=== PATIENT | male | born 1955 | race African-American/Black ===

== ENCOUNTER 2017-08-07 19:47 | Emergency (ER) | payer OTHER ==
[~2017-08-07] VITALS: Ht 182.9 cm; Wt 71.7 kg
[2017-08-07 19:50] VITALS: TEMP 36.8; Ht 182.9 cm; Wt 71.7 kg
[2017-08-07] MEDS ORDERED: LIDOCAINE/EPINEPHRINE 1% 20 ML VIAL INFIL ONE (20:15)
[2017-08-07] MEDS ORDERED: CEPHALEXIN MONOHYDRATE 250 MG CAP PO ONE (20:30)
[2017-08-07] MEDS ORDERED: CEPHALEXIN 500MG HOME PACK 1 EA BTL PO ONE (20:30)
[2017-08-07] MEDS ORDERED: ATOR-22 PO (20:53)
[2017-08-07] MEDS ORDERED: XYLOCAINE 1%/SOD BICARB 20 ML VIAL INFIL ONE (21:15)
--- NOTE | 2017-08-07 21:39 | DIAGNOSTIC IMAGING REPORT ---
LEFT FIFTH FINGER 3 VIEWS HISTORY: L 5th finger crush injury COMPARISON: None. FINDINGS: Transverse fracture within the distal tuft of the left fifth finger which demonstrates 6 mm of volar displacement. There is associated soft tissue laceration and soft tissue swelling at this location. This fracture also demonstrates 5 mm of ulnar displacement. No radiopaque foreign bodies. IMPRESSION: Displaced transverse fracture at the distal tuft of the left fifth finger. Electronically signed by: Kenroy Solorzano M.D. 08/07/2017 9:37 PM Dictated Date/Time: 08/07/2017 9:36 PM
[2017-08-07] MEDS ORDERED: CEPH500C PO (22:14)
[2017-08-07 22:23] VITALS: BP 174/82; PULSE 70; O2SAT 98
--- NOTE | 2017-08-07 22:41 | EMERGENCY ROOM VISIT NOTE ---
History First contact with patient: 22:33 Chief Complaint: FINGER PAIN Stated Complaint: LEFT HAND, SMASHED FINGER History of Present Illness The patient is a 61 year old male inmate who presents to the Emergency Room with complaints of an injury to his left fifth finger after having his finger accidentally smashed between a metal door and ice cream cart at [facility]. The patient reports that the fingertip is displaced, and rates his discomfort a 6 out of 10. The patient is [id number]. Tetanus immunization is up-to -date. Review of Systems 10 system review was performed and was negative except for pertinent positives and negatives as indicated in history of present illness Past Medical/Surgical History Medical Problems: (1) No significant past medical history Surgical Problems: (1) No history of previous surgery Family History No significant family history Unremarkable Social History Smoking Status: Current Every Day Smoker Alcohol Use: none Drug Use: none Marital Status: single Housing Status: other (incarcerated) Occupation Status: unemployed Current/Historical Medications Scheduled Atorvastatin (Lipitor), 1 TAB PO DAILY Cephalexin Monohydrate (Keflex), 500 MG PO QID Physical Exam Vital Signs Date Time Temp Pulse Resp B/P (MAP) Pulse Ox O2 Delivery O2 Flow Rate FiO2 08/07/17 22:23 70 20 174/82 98 08/07/17 19:50 36.8 71 20 193/80 98 Room Air Physical Exam CONSTITUTIONAL: Healthy and well nourished. Alert and oriented X 3 with positive affect. HEENT: Normocephalic, atraumatic. Pupils equal, round and reactive. MUSCULOSKELETAL: Examination of the left fifth finger shows a near amputation of the fingertip. The patient has a circumferential laceration at the level of the base of the nail. It is only held on by a small amount of tissue of the digital pad. Total laceration length is approximately 2.5 cm. He is no active bleeding. The underlying bone is widely exposed. Capillary refill of the distal fingertip is less than 2 seconds. INTEGUMENTARY: No rash or other significant dermatologic conditions noted. NEUROLOGIC: Left fifth fingertip is grossly sensory intact. Medical Decision & Procedures ER Provider Diagnostic Interpretation: My interpretation of left fifth finger x-rays shows an open fracture with a displaced distal phalanx fracture. There is no DIP dislocation. Radiologist report is as follows: LEFT FIFTH FINGER 3 VIEWS HISTORY: L 5th finger crush injury COMPARISON: None. FINDINGS: Transverse fracture within the distal tuft of the left fifth finger which demonstrates 6 mm of volar displacement. There is associated soft tissue laceration and soft tissue swelling at this location. This fracture also demonstrates 5 mm of ulnar displacement. No radiopaque foreign bodies. IMPRESSION: Displaced transverse fracture at the distal tuft of the left fifth finger. Medications Administered Medications (Trade) Dose Ordered Sig/[place] Route Start Time Stop Time Status Last Admin Dose Admin Lidocaine/ Epinephrine (Xylocaine/Epine 1% Inj) 20 ml ONE ONCE INFIL 08/07/17 20:15 08/07/17 21:11 DC 08/07/17 20:15 20 ML Cephalexin Monohydrate (Keflex Cap) 500 mg NOW ONCE PO 08/07/17 20:30 08/07/17 20:31 DC 08/07/17 20:32 500 MG Cephalexin Monohydrate (Keflex 500MG Home Pack) 1 homepack NOW ONCE PO 08/07/17 20:30 08/07/17 20:31 DC 08/07/17 20:32 1 HOMEPACK Lidocaine HCl (Buffered Lidocaine 1% Inj) 20 ml ONE ONCE INFIL 08/07/17 21:15 08/07/17 21:16 DC 08/07/17 21:16 20 ML Procedure Wound irrigation and laceration repair was performed under digital block anesthesia after receiving verbal consent from the patient. Using buffered 1% lidocaine without epinephrine, good digital block anesthesia was administered. The wound was then copiously pressure irrigated with 200 mL of normal saline. The wound was initially approached from the nailbed, trying to secure the nail in place at the proximal corners. After these landmarks were made, the remaining laceration on each side of the finger was then approximated using 4-0 nylon simple interrupted sutures for a total of 10 sutures. There was no active bleeding. A Xeroform dressing with a metal pancake splint was applied. ED Course Patient history and physical exam were performed. Nurse's notes were reviewed. Vital signs were reviewed, showing an elevated systolic of 193. I suspect that this was pain related. The patient initially refused any oral analgesics. X-rays of the left fifth finger shows a displaced distal tuft fracture. The patient was administered oral Keflex. The case was further discussed with Dr. Hauser, orthopedic surgeon on-call, who suggested thorough irrigation and approximating the fingertip and anatomic alignment. He suggested applying Xeroform gauze and dressing, supporting the fingertip with a splint, and follow- up at his office within the next 2 weeks. Wound irrigation and laceration repair was performed under digital block anesthesia. The patient's finger was well supported with a metal pancake splint. The patient was provided a home pack and prescription for Keflex. He may alternate ibuprofen and Tylenol as needed for pain. Contact information was provided for Dr. Hauser's office for follow-up. The patient denied any pain at the time of discharge, and security transferred the patient back to [facility]. Medical Decision Blood Pressure Screening Patient's blood pressure: Elevated blood pressure Blood pressure disposition: Elevated BP felt to be situational Impression Primary Impression: Open displaced fracture of phalanx of left little finger Additional Impression: Laceration of left little finger with damage to nail Departure Information Dispostion Home / Self-Care Prescriptions Cephalexin Monohydrate (Keflex) 500 Mg Cap 500 MG PO QID for 6 Days, #24 CAP Prov: Adair Atkins PA 08/07/17 Forms HOME CARE DOCUMENTATION FORM, IMPORTANT VISIT INFORMATION Patient Instructions [facility] Additional Instructions Keep dressing and metal splint in place. Elevate hand as needed for swelling and pain. Ibuprofen or Tylenol if needed for additional pain relief. Administer Keflex 500 mg four times daily 7 days. Follow-up with Dr. Hauser for further reevaluation and management. Call his office tomorrow morning for an appointment. Problem Qualifiers Primary Impression: Open displaced fracture of phalanx of left little finger Encounter type: initial encounter Phalanx: distal Qualified Codes: S62.637B - Displaced fracture of distal phalanx of left little finger, initial encounter for open fracture Additional Impression: Laceration of left little finger with damage to nail Encounter type: initial encounter Foreign body presence: without foreign body Qualified Codes: S61.317A - Laceration without foreign body of left little finger with damage to nail, initial encounter
== END 2017-08-07 22:25 | disposition home or self-care (01) ==
LOC: C.EDB 19:47 → C.EDD 22:25
DX: S62.637B Displaced fracture of distal phalanx of left little finger, initial encounter for open fracture (principal); S61.317A Laceration without foreign body of left little finger with damage to nail, initial encounter; W23.0XXA Caught, crushed, jammed, or pinched between moving objects, initial encounter; Y92.149 Unspecified place in prison as the place of occurrence of the external cause; F17.210 Nicotine dependence, cigarettes, uncomplicated; Z79.899 Other long term (current) drug therapy